=== PATIENT | female | born 1960 | race Caucasian/White ===

== ENCOUNTER 2019-02-25 13:08 | Inpatient (IN) | payer MEDICAID, SELFPAY ==
--- NOTE | 2019-02-25 13:38 | NEWVISION ---
Patient has recently established outpatient counseling with [facility] in [place]. [facility] contacted Sangeeta, patient's counselor to establish an appointment time post discharge. Sangeeta requests that patient call her upon discharge to determine when patient is to begin attending IOP.
[2019-02-25 13:41] VITALS: BP 146/89; PULSE 87; RESP 16; TEMP 36.6; O2SAT 99
[2019-02-25 13:47] VITALS: BMI 15.7
[2019-02-25 13:55] VITALS: BMI 15.8
[2019-02-25 14:12] VITALS: BP 146/89; PULSE 87; RESP 16; TEMP 36.6
[2019-02-25 14:52] LABS: Absolute Lymphocyte Count 1.45 X10^3/ul (0.83-4.51); Absolute Neutrophil Count 3.5 X10^3/uL (2.0-7.7); Basophil# 0.02 X10^3/uL; Basophil% 0.4 % (0-1); Eosinophil# 0.03 X10^3/uL; Eosinophils% 0.5 % (0-5); Hematocrit 45.5 % (37-47); Hemoglobin 16.4 g/dl (12.0-15.0); Lymphocyte # 1.45 X10^3/ul (4.0); Lymphocyte % 26.4 % (19-41); Mean Corpuscular Hgb 36.5 pg (27.0-32.0); Mean Corpuscular Volume 101.3 fL (81-99); Monocyte% 9.1 % (0-10); Neutrophil # 3.49 X10^3/uL (2.7-7.7); Neutrophil % 63.4 % (47-70); Platelet Count 122 K/mm3 (150-450); RBC Distribution Width CV 13.3 % (11.6-14.6); RBC Distribution Width SD 49.3 fl (35.1-43.9); Red Blood Count 4.49 M/mm3 (4.2-5.4); White Blood Count 5.5 K/mm3 (4.4-11.0)
[2019-02-25 14:54] LABS: POSITIVE COUNT NO; POSITIVE DIFFERENTIAL NO; POSITIVE MORPHOLOGY NO
[2019-02-25] MEDS: chlordiazePOXIDE 25 MG Capsule PO ×2 (15:00→20:18)
[2019-02-25 15:01] LABS: ALB/GLOB Ratio 0.8 RATIO (0.9-2.4); AST(SGOT) 116 U/L (15-37); Alanine Aminotransfer ALT/SGPT 38 U/L (13-56); Albumin, Serum 3.3 g/dL (3.2-5.0); Alkaline Phosphatase 161 U/L (45-117); Anion Gap 7 (5-15); BUN 2 mg/dL (7-18); BUN/Creat Ratio 4.3 RATIO (10-20); Calcium,Total 8.6 mg/dL (8.5-10.1); Chloride 95 mmol/L (98-107); Creatinine, Serum 0.46 mg/dL (0.55-1.02); EST Glomerular Filtration Rate 147 mL/min (>60); Est Glom Filt Rate - Afr Amer 178 mL/min (>60); Estimated Creatinine Clearance 87.97 ml/min; Globulin 4.2 g/dL (2.2-4.2); Glucose 83 mg/dL (74-106); Potassium 4.2 mmol/L (3.5-5.1); Protein, Total 7.5 g/dL (6.4-8.2); Sodium Level 129 mmol/L (136-145)
[2019-02-25 15:13] LABS: Bacteria 0 SEEN /hpf (None Seen); Mucous, Urine 0 SEEN /hpf (<or=2+); Red Blood Cells-Urine 0 SEEN /hpf (0-5); White Blood Cells 0 SEEN /hpf (0-5)
[2019-02-25 15:46] LABS: Color, Urine Yellow (Yellow); Glucose, Dipstick Normal (Normal); Ketone-Dipstick Negative (Negative); Leukocyte Esterase-Dipstick Negative /ul (Negative); Nitrite-Dipstick Negative (Negative); Occult Blood-Urine Negative /ul (Negative); Protein-Dipstick Negative (Negative); Specific Gravity, Urine 1.005 (1.002-1.030); Urine Bilirubin Dipstick Negative (Negative); Urine Clarity Clear (Clear); Urine Urobilinogen Normal (Normal)
[2019-02-25 15:50] LABS: Squamous Epithelial Cells - UA 0-5 SEEN /hpf (5-10)
--- NOTE | 2019-02-25 16:26 | PCM.HP.STD ---
Problem List (1) Alcohol withdrawal Status: Acute (2) Hyponatremia Status: Acute (3) Nicotine abuse Status: Chronic (4) COPD (chronic obstructive pulmonary disease) Status: Chronic (5) Anxiety Status: Chronic History of Present Illness Date of Admission: 02/25/19 Chief Complaint: alcohol withdrawal The patient is a 58 year old F with past medical history of alcoholism, COPD, anxiety, nicotine abuse, chronic resting tremor who presented to the medical stabilization program requesting assistance with alcohol detox and acute alcohol withdrawal. Her threatened to leave her if she did not stop drinking. She is never been through alcohol withdrawal. She has been an alcoholic between 10 to 20 years. She drinks approximately 12-15 normal size beers daily. Her last drink was this morning, she drank 3 beers. She reports increase in her resting tremor, anxiety, diarrhea. She also smokes about a pack a day. She requested nicotine patch. She plans to pursue the 180 program after discharge. She also notes that she has lost about 20 pounds in the last year that she attributes to not eating right. 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 Denies: Chills, Fever, Weight Change HEENT: Denies: Head Aches, Sinus Congestion, Sinus Drainage Cardiovascular: Denies: Chest Pain, Palpitations Respiratory: Denies: Cough, Shortness of breath at rest, Sputum production Gastrointestinal: Denies: Abdominal Pain, Nausea, Vomiting Genitourinary: Denies: Dysuria Musculoskeletal: Denies: Joint Pain, Joint Tenderness Skin: Denies: Rash, Wounds Neurological: Denies: Numbness, Tingling, Focal weakness Psychiatric: Denies: Anxiety, Depression, Homicidal Ideations, Suicidal Ideations Hematologic/ Lymphatic: Denies: Easy Bruising, Easy Bleeding VTE Information - Inpt Only VTE Present on Admission: No VTE Mechan Device Prophylaxis: None VTE Pharm Prophylaxis ordered?: No Reason prophylaxis not ordered:: Procedure Not Indicated Patient Problems: Active and Suspected Problems Alcohol withdrawal (Acute) Hyponatremia (Acute) - Physical Exam General: Alert, Oriented x3, Cooperative HEENT: Atraumatic, PERRLA, EOMI, Normocephalic Neck: Supple, No JVD, Negative Carotid Bruits Lungs: Clear to auscultation, Normal air movement Cardiovascular: Regular rate, No murmurs Abdomen: Bowel Sounds Present, Soft, Non Tender Extremities: No edema, Capillary Refill Less than 3 Seconds Skin: No rashes, No breakdown Musculoskeletal: No Tenderness to Palpation of Joints or Extremities Neurological: Cranial nerves II-XII grossly intact, - - Resting tremor Psych/Mental Status: Appropriate, Anxious Vital Signs Temp Pulse Resp BP Pulse Ox 97.8 F 87 16 146/89 H 99 02/25/19 14:12 02/25/19 14:12 02/25/19 14:12 02/25/19 14:12 02/25/19 13:41 Oxygen Delivery Method Room Air Weight: 92 lb 2.452 oz Body Mass Index (BMI) 15.7 Laboratory Tests Past 24 Hrs 02/25/19 02/25/19 02/25/19 14:27 14:27 15:04 WBC 5.5 RBC 4.49 Hgb 16.4 H Hct 45.5 MCV 101.3 H MCH 36.5 H MCHC 36.0 RDW 13.3 RDW Differential 49.3 H Plt Count 122 L MPV 10.0 Immature Gran % (Auto) 0.200 Neut % (Auto) 63.4 Lymph % (Auto) 26.4 [place] % (Auto) 9.1 Eos % (Auto) 0.5 Baso % (Auto) 0.4 Absolute Neuts (auto) 3.5 Absolute Lymphs (auto) 1.45 Total Counted Not Reportable Sodium 129 L Potassium 4.2 Chloride 95 L Carbon Dioxide 27.0 Anion Gap 7 BUN 2 L Creatinine 0.46 L Estim Creat Clear Calc 87.97 Est GFR (MDRD) Af Amer 178 Est GFR (MDRD) Non-Af 147 BUN/Creatinine Ratio 4.3 L Glucose 83 Calcium 8.6 Total Bilirubin 0.60 AST 116 H ALT 38 Alkaline Phosphatase 161 H Total Protein 7.5 Albumin 3.3 Globulin 4.2 Albumin/Globulin Ratio 0.8 L Urine Color Yellow Urine Clarity Clear Urine pH 7.0 Ur Specific [place] 1.005 Urine Protein Negative Urine Glucose (UA) Normal Urine Ketones Negative Urine Occult Blood Negative Urine Nitrite Negative Urine Bilirubin Negative Urine Urobilinogen Normal Ur Leukocyte Esterase Negative Urine RBC 0 SEEN Urine WBC 0 SEEN Ur Squamous Epith Cells 0-5 SEEN Urine Bacteria 0 SEEN Urine Mucus 0 SEEN Assessment/Plan All Active Problems Alcohol withdrawal (Acute) Hyponatremia (Acute) 1. Alcoholism with acute alcohol withdrawal-current symptoms include anxiety, increased tremor, diarrhea. Drinks approximately 12-15 beers per day. Initiate medical stabilization program with Librium and Ativan taper. CIWA protocol, provide MVI, folate, thiamine. 2. Hyponatremia secondary to beer potomania-we will encourage increased p.o. intake. Should trend to normal off of beer with normal fluid and meals. 3. Nicotine abuse-patch daily 4. Anxiety-she would benefit from the initiation of SSRI or BuSpar. 5. Severe protein calorie malnutrition as evidenced by progressive weight loss, frail appearance, poor BMI, patient not eating normal meals-dietitian consult. Provide supplemental protein. 6. History of COPD-never formally diagnosed, continue aerosols as needed. DVT prophylaxis: Early ambulation Medical stabilization day [address] [place] [address] [place] This patient was seen by Musa Bernabe PA-C under the supervision of Doctor Langford.
--- NOTE | 2019-02-25 16:30 | HP.PCM_ITS ---
Problem List (1) Alcohol withdrawal Status: Acute (2) Hyponatremia Status: Acute (3) Nicotine abuse Status: Chronic (4) COPD (chronic obstructive pulmonary disease) Status: Chronic (5) Anxiety Status: Chronic History of Present Illness Date of Admission: 02/25/19 Chief Complaint: alcohol withdrawal The patient is a 58 year old F with past medical history of alcoholism, COPD, anxiety, nicotine abuse, chronic resting tremor who presented to the medical stabilization program requesting assistance with alcohol detox and acute alcohol withdrawal. Her threatened to leave her if she did not stop drinking. She is never been through alcohol withdrawal. She has been an alcoholic between 10 to 20 years. She drinks approximately 12-15 normal size beers daily. Her last drink was this morning, she drank 3 beers. She reports increase in her resting tremor, anxiety, diarrhea. She also smokes about a pack a day. She requested nicotine patch. She plans to pursue the 180 program after discharge. She also notes that she has lost about 20 pounds in the last year that she att ributes to not eating right. 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 Denies: Chills, Fever, Weight Change HEENT: Denies: Head Aches, Sinus Congestion, Sinus Drainage Cardiovascular: Denies: Chest Pain, Palpitations Respiratory: Denies: Cough, Shortness of breath at rest, Sputum production Gastrointestinal: Denies: Abdominal Pain, Nausea, Vomiting Genitourinary: Denies: Dysuria Musculoskeletal: Denies: Joint Pain, Joint Tenderness Skin: Denies: Rash, Wounds Neurological: Denies: Numbness, Tingling, Focal weakness Psychiatric: Denies: Anxiety, Depression, Homicidal Ideations, Suicidal Ideations Hematologic/ Lymphatic: Denies: Easy Bruising, Easy Bleeding VTE Information - Inpt Only VTE Present on Admission: No VTE Mechan Device Prophylaxis: None VTE Pharm Prophylaxis ordered?: No Reason prophylaxis not ordered:: Procedure Not Indicated Patient Problems: Active and Suspected Problems Alcohol withdrawal (Acute) Hyponatremia (Acute) - Physical Exam General: Alert, Oriented x3, Cooperative HEENT: Atraumatic, PERRLA, EOMI, Normocephalic Neck: Supple, No JVD, Negative Carotid Bruits Lungs: Clear to auscultation, Normal air movement Cardiovascular: Regular rate, No murmurs Abdomen: Bowel Sounds Present, Soft, Non Tender Extremities: No edema, Capillary Refill Less than 3 Seconds Skin: No rashes, No breakdown Musculoskeletal: No Tenderness to Palpation of Joints or Extremities Neurological: Cranial nerves II-XII grossly intact, - - Resting tremor Psych/Mental Status: Appropriate, Anxious Vital Signs Temp Pulse Resp BP Pulse Ox 97.8 F 87 16 146/89 H 99 02/25/19 14:12 02/25/19 14:12 02/25/19 14:12 02/25/19 14:12 02/25/19 13:41 Oxygen Delivery Method Room Air Weight: 92 lb 2.452 oz Body Mass Index (BMI) 15.7 Laboratory Tests Past 24 Hrs 02/25/19 02/25/19 02/25/19 14:27 14:27 15:04 WBC 5.5 RBC 4.49 Hgb 16.4 H Hct 45.5 MCV 101.3 H MCH 36.5 H MCHC 36.0 RDW 13.3 RDW Differential 49.3 H Plt Count 122 L MPV 10.0 Immature Gran % (Auto) 0.200 Neut % (Auto) 63.4 Lymph % (Auto) 26.4 [place] % (Auto) 9.1 Eos % (Auto) 0.5 Baso % (Auto) 0.4 Absolute Neuts (auto) 3.5 Absolute Lymphs (auto) 1.45 Total Counted Not Reportable Sodium 129 L Potassium 4.2 Chloride 95 L Carbon Dioxide 27.0 Anion Gap 7 BUN 2 L Creatinine 0.46 L Estim Creat Clear Calc 87.97 Est GFR (MDRD) Af Amer 178 Est GFR (MDRD) Non-Af 147 BUN/Creatinine Ratio 4.3 L Glucose 83 Calcium 8.6 Total Bilirubin 0.60 AST 116 H ALT 38 Alkaline Phosphatase 161 H Total Protein 7.5 Albumin 3.3 Globulin 4.2 Albumin/Globulin Ratio 0.8 L Urine Color Yellow Urine Clarity Clear Urine pH 7.0 Ur Specific [place] 1.005 Urine Protein Negative Urine Glucose (UA) Normal Urine Ketones Negative Urine Occult Blood Negative Urine Nitrite Negative Urine Bilirubin Negative Urine Urobilinogen Normal Ur Leukocyte Esterase Negative Urine RBC 0 SEEN Urine WBC 0 SEEN Ur Squamous Epith Cells 0-5 SEEN Urine Bacteria 0 SEEN Urine Mucus 0 SEEN Assessment/Plan All Active Problems Alcohol withdrawal (Acute) Hyponatremia (Acute) 1. Alcoholism with acute alcohol withdrawal-current symptoms include anxiety, increased tremor, diarrhea. Drinks approximately 12-15 beers per day. Initiate medical stabilization program with Librium and Ativan taper. CIWA protocol, provide MVI, folate, thiamine. 2. Hyponatremia secondary to beer potomania-we will encourage increased p.o. intake. Should trend to normal off of beer with normal fluid and meals. 3. Nicotine abuse-patch daily 4. Anxiety-she would benefit from the initiation of SSRI or BuSpar. 5. Severe protein calorie malnutrition as evidenced by progressive weight loss, frail appearance, poor BMI, patient not eating normal meals-dietitian consult. Provide supplemental protein. 6. History of COPD-never formally diagnosed, continue aerosols as needed. DVT prophylaxis: Early ambulation Medical stabilization day 1 of 4 [place] plann[place] This patient was seen by Musa Bernabe PA-C under the supervision of Doctor Langford.
[2019-02-25 17:59] VITALS: BP 154/76; PULSE 91; RESP 18; TEMP 36.3
[2019-02-25] MEDS: Ensure Clear 120 ML Liquid PO ×2 (18:00→22:53)
[2019-02-25 20:07] VITALS: BP 154/76; PULSE 98; RESP 18; TEMP 36.4
[2019-02-25] MEDS: Heparin Injection (Vial) 5,000 UNIT/ML VIAL 5000 UNIT SC (22:53)
[2019-02-26] VITALS (7 sets, daily range): BP systolic 140–154; BP diastolic 78–89; PULSE 90–108; RESP 16–18; TEMP 36.4–36.9; O2SAT 96
[2019-02-26] MEDS: chlordiazePOXIDE 25 MG Capsule PO ×3 (02:30→17:15)
[2019-02-26] MEDS: Methocarbamol 750 MG Tablet PO (08:35)
[2019-02-26] MEDS: Multivitamins,Therapeutic Tablet 1 TABLET PO (08:36)
[2019-02-26] MEDS: Thiamine Hydrochloride 100 MG Tablet PO (08:36)
[2019-02-26] MEDS: Folic Acid 1 MG Tablet PO (08:37)
[2019-02-26] MEDS: Heparin Injection (Vial) 5,000 UNIT/ML VIAL 5000 UNIT SC ×2 (08:40→22:16)
[2019-02-26] MEDS: Ensure Clear 120 ML Liquid PO ×4 (08:48→22:19)
--- NOTE | 2019-02-26 13:56 | PCM.PROGNOTE ---
<Musa Bernabe - Last Filed: 02/26/19 13:56> Patient Problems: Active and Suspected Problems Alcohol withdrawal (Acute) Hyponatremia (Acute) Subjective: Resting tremor somewhat improved. No abd pain, no nausea, vomiting, diarrhea. Pt resting comfortably in chair at bedside NAD. - Physical Exam General: Alert, Oriented x3, Cooperative HEENT: Atraumatic, PERRLA, EOMI, Normocephalic Neck: Supple, No JVD, Negative Carotid Bruits Lungs: Clear to auscultation, Normal air movement Cardiovascular: Regular rate, No murmurs Abdomen: Bowel Sounds Present, Soft, Non Tender Extremities: No edema, Capillary Refill Less than 3 Seconds Skin: No rashes, No breakdown Musculoskeletal: No Tenderness to Palpation of Joints or Extremities Neurological: Cranial nerves II-XII grossly intact, - - resting tremor - head bobbing. Psych/Mental Status: Normal Affect, Appropriate, Alert and oriented to time, place, person, mood and affect Vital Signs Temp Pulse Resp BP Pulse Ox 97.6 F L 90 18 140/82 H 99 02/26/19 12:50 02/26/19 12:50 02/26/19 12:50 02/26/19 12:50 02/25/19 13:41 Oxygen Delivery Method Room Air Weight: 92 lb 2.452 oz Body Mass Index (BMI) 15.7 Intake and Output for Last 24 Hours 02/24/19 02/25/19 02/26/19 23:59 23:59 23:59 Intake Total 240 / 240 760 / 760 Balance 240 / 240 760 / 760 Laboratory Tests Past 24 Hrs 02/25/19 02/25/19 02/25/19 14:27 14:27 15:04 WBC 5.5 RBC 4.49 Hgb 16.4 H Hct 45.5 MCV 101.3 H MCH 36.5 H MCHC 36.0 RDW 13.3 RDW Differential 49.3 H Plt Count 122 L MPV 10.0 Immature Gran % (Auto) 0.200 Neut % (Auto) 63.4 Lymph % (Auto) 26.4 [place] % (Auto) 9.1 Eos % (Auto) 0.5 Baso % (Auto) 0.4 Absolute Neuts (auto) 3.5 Absolute Lymphs (auto) 1.45 Total Counted Not Reportable Sodium 129 L Potassium 4.2 Chloride 95 L Carbon Dioxide 27.0 Anion Gap 7 BUN 2 L Creatinine 0.46 L Estim Creat Clear Calc 87.97 Est GFR (MDRD) Af Amer 178 Est GFR (MDRD) Non-Af 147 BUN/Creatinine Ratio 4.3 L Glucose 83 Calcium 8.6 Total Bilirubin 0.60 AST 116 H ALT 38 Alkaline Phosphatase 161 H Total Protein 7.5 Albumin 3.3 Globulin 4.2 Albumin/Globulin Ratio 0.8 L Urine Color Yellow Urine Clarity Clear Urine pH 7.0 Ur Specific [place] 1.005 Urine Protein Negative Urine Glucose (UA) Normal Urine Ketones Negative Urine Occult Blood Negative Urine Nitrite Negative Urine Bilirubin Negative Urine Urobilinogen Normal Ur Leukocyte Esterase Negative Urine RBC 0 SEEN Urine WBC 0 SEEN Ur Squamous Epith Cells 0-5 SEEN Urine Bacteria 0 SEEN Urine Mucus 0 SEEN Medical Necessity - Tobacco Use Smoking Status: Current every day smoker Tobacco Use: Cigarettes Assessment/Plan All Active Problems Alcohol withdrawal (Acute) Hyponatremia (Acute) 1. Alcoholism with acute alcohol withdrawal-current symptoms include tremor. Drinks approximately 12-15 beers per day. Continue Librium and Ativan taper. CIWA protocol, provide MVI, folate, thiamine. 2. Hyponatremia secondary to beer potomania-we will encourage increased p.o. intake. Should trend to normal off of beer with normal PO fluid intake and meals. 3. Nicotine abuse-patch daily 4. Anxiety-she would benefit from the initiation of SSRI or BuSpar. 5. Severe protein calorie malnutrition as evidenced by progressive weight loss, frail appearance, poor BMI, patient not eating normal meals-dietitian consult. Provide supplemental protein. 6. History of COPD-never formally diagnosed, continue aerosols as needed. DVT prophylaxis: Early ambulation Medical stabilization day 2 of 4 [place] This patient was seen by Musa Bernabe PA-C under the supervision of Doctor Celia. <Marshal Yang E - Last Filed: 02/26/19 14:12> - Physical Exam Vital Signs Temp Pulse Resp BP Pulse Ox 97.6 F L 90 18 140/82 H 99 02/26/19 12:50 02/26/19 12:50 02/26/19 12:50 02/26/19 12:50 02/25/19 13:41 Oxygen Delivery Method Room Air Weight: 92 lb 2.452 oz Body Mass Index (BMI) 15.7 Intake and Output for Last 24 Hours 02/24/19 02/25/19 02/26/19 23:59 23:59 23:59 Intake Total 240 / 240 760 / 760 Balance 240 / 240 760 / 760 Laboratory Tests Past 24 Hrs 02/25/19 02/25/19 02/25/19 14:27 14:27 15:04 WBC 5.5 RBC 4.49 Hgb 16.4 H Hct 45.5 MCV 101.3 H MCH 36.5 H MCHC 36.0 RDW 13.3 RDW Differential 49.3 H Plt Count 122 L MPV 10.0 Immature Gran % (Auto) 0.200 Neut % (Auto) 63.4 Lymph % (Auto) 26.4 [place] % (Auto) 9.1 Eos % (Auto) 0.5 Baso % (Auto) 0.4 Absolute Neuts (auto) 3.5 Absolute Lymphs (auto) 1.45 Total Counted Not Reportable Sodium 129 L Potassium 4.2 Chloride 95 L Carbon Dioxide 27.0 Anion Gap 7 BUN 2 L Creatinine 0.46 L Estim Creat Clear Calc 87.97 Est GFR (MDRD) Af Amer 178 Est GFR (MDRD) Non-Af 147 BUN/Creatinine Ratio 4.3 L Glucose 83 Calcium 8.6 Total Bilirubin 0.60 AST 116 H ALT 38 Alkaline Phosphatase 161 H Total Protein 7.5 Albumin 3.3 Globulin 4.2 Albumin/Globulin Ratio 0.8 L Urine Color Yellow Urine Clarity Clear Urine pH 7.0 Ur Specific [place] 1.005 Urine Protein Negative Urine Glucose (UA) Normal Urine Ketones Negative Urine Occult Blood Negative Urine Nitrite Negative Urine Bilirubin Negative Urine Urobilinogen Normal Ur Leukocyte Esterase Negative Urine RBC 0 SEEN Urine WBC 0 SEEN Ur Squamous Epith Cells 0-5 SEEN Urine Bacteria 0 SEEN Urine Mucus 0 SEEN Assessment/Plan Hospitalist note: I am seeing this patient in conjunction with Musa Bernabe. I independently seen and examined the patient. Progress note above reviewed and I concur with the above treatment plan. Patient seen and examined. Her symptoms improved, resting tremor is getting better. Denies nausea or vomiting. Denies abdominal pain. She was able to sleep overnight. Her vital signs were stable. - Physical Exam General: Alert, Oriented x3, Cooperative, No apparent distress. HEENT: Atraumatic, PERRLA, EOMI. Neck: Supple, No JVD, Negative Carotid Bruits, Trachea Midline, Thyroid Normal. Lungs: Clear to auscultation, Normal air movement, No rhonchi, No wheeze, No rales. Cardiovascular: Regular rate, Regular Rhythm, Normal S1, Normal S2, PMI Normal. Abdomen: Bowel Sounds Present, Soft, Non Tender, Non-Distended, No Hepato-splenomegaly. Extremities: No clubbing, No cyanosis, No edema Skin: No rashes, No breakdown Neurological: Cranial nerves are intact. Normal power and tone. Head-nodding, resting tremor. Vital Signs stable. Assessment and plan: #1 acute alcohol withdrawal: She is on tapering course of Librium, folic acid and thiamine supplement, PRN methocarbamol, Motrin, Tylenol and multivitamins. Her vital signs are stable. Symptoms mildly improved. Today, she complained of some weakness. Plan to continue same treatment, PT OT evaluation and treatment. #2 hyponatremia: Likely euvolemic hyponatremia secondary to chronic alcohol abuse. Sodium was 129. #3 severe protein calorie malnutrition: Nutrition consulted, she is on protein supplement. #4 other chronic medical problems: Stable, continue current medications as above. This note was generated with [employer] dictation software. It may contain incorrect words, spelling, and punctuation that were not noted in checking the note before signing. Code Visit Inpatient E&M: 91598 Subs Hosp L2
[2019-02-27] MEDS: chlordiazePOXIDE 25 MG Capsule PO ×3 (00:15→18:03)
[2019-02-27 10:00] VITALS: BP 147/97; PULSE 95; RESP 20; TEMP 36.4
[2019-02-27] MEDS: Folic Acid 1 MG Tablet PO (10:39)
[2019-02-27] MEDS: Thiamine Hydrochloride 100 MG Tablet PO (10:39)
[2019-02-27] MEDS: Heparin Injection (Vial) 5,000 UNIT/ML VIAL 5000 UNIT SC ×2 (10:39→22:32)
[2019-02-27] MEDS: Multivitamins,Therapeutic Tablet 1 TABLET PO (10:39)
--- NOTE | 2019-02-27 14:36 | PCM.PROGNOTE ---
<Musa Bernabe - Last Filed: 02/27/19 14:36> Patient Problems: Active and Suspected Problems Alcohol withdrawal (Acute) Hyponatremia (Acute) Subjective: Pt resting comfortably in chair at bedside NAD. No improvement in tremor. No N/V/Diarrhea/abdominal pain, ROA, SOB. - Physical Exam General: Alert, Oriented x3, Cooperative HEENT: Atraumatic, PERRLA, EOMI, Normocephalic Neck: Supple, No JVD, Negative Carotid Bruits Lungs: Clear to auscultation, Normal air movement Cardiovascular: Regular rate, No murmurs Abdomen: Bowel Sounds Present, Soft, Non Tender Extremities: No edema, Capillary Refill Less than 3 Seconds Skin: No rashes, No breakdown Musculoskeletal: No Tenderness to Palpation of Joints or Extremities Neurological: Cranial nerves II-XII grossly intact, - - resting tremor - head gisella Psych/Mental Status: Normal Affect, Appropriate, Alert and oriented to time, place, person, mood and affect Vital Signs Temp Pulse Resp BP Pulse Ox 97.5 F L 95 20 H 147/97 H 96 02/27/19 10:00 02/27/19 10:00 02/27/19 10:00 02/27/19 10:00 02/26/19 22:21 Oxygen Delivery Method Room Air Weight: 92 lb 2.452 oz Body Mass Index (BMI) 15.7 Intake and Output for Last 24 Hours 02/25/19 02/26/19 02/27/19 23:59 23:59 23:59 Intake Total 240 / 240 1180 / 1180 740 / 740 Balance 240 / 240 1180 / 1180 740 / 740 Medical Necessity - Tobacco Use Smoking Status: Current every day smoker Tobacco Use: Cigarettes Assessment/Plan All Active Problems Alcohol withdrawal (Acute) Hyponatremia (Acute) 1. Alcoholism with acute alcohol withdrawal-current symptoms include tremor. Drinks approximately 12-15 beers per day. Continue Librium and Ativan taper. CIWA protocol, provide MVI, folate, thiamine. 2. Hyponatremia secondary to beer potomania-we will encourage increased p.o. intake. Should trend to normal off of beer with normal PO fluid intake and meals. 3. Nicotine abuse-patch daily 4. Anxiety-she would benefit from the initiation of SSRI or BuSpar. 5. Severe protein calorie malnutrition as evidenced by progressive weight loss, frail appearance, poor BMI, patient not eating normal meals-dietitian consult. Provide supplemental protein. 6. History of COPD-never formally diagnosed, continue aerosols as needed. DVT prophylaxis: Early ambulation Medical stabilization day 3 of 4 [place] pl[place] This patient was seen by Musa Bernabe PA-C under the supervision of Doctor Celia. <Marshal Yang E - Last Filed: 02/27/19 14:49> - Physical Exam Vital Signs Temp Pulse Resp BP Pulse Ox 97.5 F L 95 20 H 147/97 H 96 02/27/19 10:00 02/27/19 10:00 02/27/19 10:00 02/27/19 10:00 02/26/19 22:21 Oxygen Delivery Method Room Air Weight: 92 lb 2.452 oz Body Mass Index (BMI) 15.7 Intake and Output for Last 24 Hours 02/25/19 02/26/19 02/27/19 23:59 23:59 23:59 Intake Total 240 / 240 1180 / 1180 740 / 740 Balance 240 / 240 1180 / 1180 740 / 740 Assessment/Plan Hospitalist note: I am seeing this patient in conjunction with Musa Bernabe. I independently seen and examined the patient. Progress note above reviewed and I concur with the above treatment plan. Patient seen and examined. She denied any significant complaints. She still having tremors and head nodding but I am not sure if those are related to alcohol withdrawal which I doubt it. Her vital signs are stable. - Physical Exam General: Alert, Oriented x3, Cooperative, No apparent distress. HEENT: Atraumatic, PERRLA, EOMI. Neck: Supple, No JVD, Negative Carotid Bruits, Trachea Midline, Thyroid Normal. Lungs: Clear to auscultation, Normal air movement, No rhonchi, No wheeze, No rales. Cardiovascular: Regular rate, Regular Rhythm, Normal S1, Normal S2, PMI Normal. Abdomen: Bowel Sounds Present, Soft, Non Tender, Non-Distended, No Hepato-splenomegaly. Extremities: No clubbing, No cyanosis, No edema Skin: No rashes, No breakdown Neurological: Cranial nerves are intact. Normal power and tone. Head-nodding, resting tremor. Vital Signs stable. Assessment and plan: #1 acute alcohol withdrawal: She is on tapering course of Librium, folic acid and thiamine supplement, PRN methocarbamol, Motrin, Tylenol and multivitamins. Her vital signs are stable. Patient is doing fine, still having head nodding. Plan to potassium treatment, DC home tomorrow. #2 hyponatremia: Likely euvolemic hyponatremia secondary to chronic alcohol abuse. Sodium was 129. #3 severe protein calorie malnutrition: Nutrition consulted, she is on protein supplement. #4 other chronic medical problems: Stable, continue current medications as above. This note was generated with [employer] dictation software. It may contain incorrect words, spelling, and punctuation that were not noted in checking the note before signing. Code Visit Inpatient E&M: 89036 Subs Hosp L2
--- NOTE | 2019-02-27 16:30 | NURSING ---
This morning, Physical Therapy informed this nurse that after evaluating pt, pt is unsteady. This nurse stated that she would put bed exit alarm on pt and Physical therapy said probably not a good idea. They recommended her to be independent going to the bathroom otherwise pt would be more agitated then she already was but make her ambulate in halls but only with assistance from staff. This nurse went back to talk to pt about this. Pt Agitated with Physical therapy. Refusing to work with them tomorrow. This nurse sat down next to pt and listened to her talk. Explained to pt when she was done talking that physical therapy at least wants her to walk the halls TID but only with staff present. Pt did not respond. Still upset. Dr. Yang aware of all the above. Dr. Yang stated that Martina told him yesterday that She felt weak and unsteady and that was why he ordered Physical Therapy.
[2019-02-27] MEDS: Ensure Clear 120 ML Liquid PO ×2 (18:03→22:29)
[2019-02-27 18:21] VITALS: BP 140/82; PULSE 100; RESP 16; TEMP 36.8; O2SAT 100
[2019-02-27 22:05] VITALS: BP 169/103; PULSE 97; RESP 20; TEMP 36.8; O2SAT 99
[2019-02-27 22:12] VITALS: BP 169/103; PULSE 97; RESP 20; TEMP 36.8
[2019-02-28 00:43] VITALS: BP 146/95; PULSE 96; RESP 18; TEMP 36.7; O2SAT 98
[2019-02-28 04:00] VITALS: BP 142/87; PULSE 87; RESP 18; TEMP 36.4; O2SAT 98
[2019-02-28] MEDS: chlordiazePOXIDE 25 MG Capsule PO (04:02)
[2019-02-28 04:06] VITALS: RESP 18
[2019-02-28] MEDS: Thiamine Hydrochloride 100 MG Tablet PO (08:42)
[2019-02-28] MEDS: Folic Acid 1 MG Tablet PO (08:42)
[2019-02-28] MEDS: Multivitamins,Therapeutic Tablet 1 TABLET PO (08:42)
[2019-02-28] MEDS: Heparin Injection (Vial) 5,000 UNIT/ML VIAL 5000 UNIT SC (08:43)
[2019-02-28] MEDS: Ensure Clear 120 ML Liquid PO (08:49)
[2019-02-28 10:00] VITALS: BP 143/91; PULSE 108; RESP 18; TEMP 36.6; O2SAT 99
--- NOTE | 2019-02-28 10:51 | DCINST_ITS ---
- Discharge Diagnoses Current Active Problems: Current Active and Chronic Problems Alcohol withdrawal (Acute) Nicotine abuse (Chronic) COPD (chronic obstructive pulmonary disease) (Chronic) Anxiety (Chronic) Hyponatremia (Acute) You will use the following diet at home:: No restrictions, Other - No alcohol whatsoever Your food should be the consistency of: Regular Your liquids should be the consistency of: Regular/Thin Discharge Activity: Return to Normal Activity Allergies/Adverse Reactions: Allergies codeine Allergy (Intermediate, Verified 02/25/19 13:43) Vomiting Medications to take at Discharge Folic Acid 1 mg PO DAILY 02/25/19 Thiamine Mononitrate (Vit B1) [Vitamin B-1] 100 mg PO DAILY 02/25/19 Primary Care Physician: Care Physician,No Primary [Primary Care Provider] - Please follow up with your Primary Care Physician in: 1-2 weeks Test Results: Test results from this visit will be discussed in further detail at your follow- up appointment, if applicable. Please Follow Up With: 180 program Proposed Discharge Date: 02/28/19
--- NOTE | 2019-02-28 11:25 | NEWVISION ---
Patient was made an appointment to attend intensive outpatient treatment programming with [facility]. Patient states she is a current open client of [facility]. I confirmed with agency and set her up to start IOP tomorrow 5.21.19 at 10am in [place].
[2019-02-28 12:20] VITALS: BP 143/91; PULSE 108; RESP 18; TEMP 36.6; O2SAT 99
--- NOTE | 2019-02-28 15:35 | PCM.DC.SUM ---
<Musa Bernabe - Last Filed: 02/28/19 15:35> Discharge Date and Diagnosis Date of Admission: 02/25/19 Date of Discharge: 02/28/19 - Primary Discharge Diagnosis Alcoholism with acute withdrawal Hyponatremia secondary to beer potomania Nicotine abuse Anxiety Severe protein calorie malnutrition History of COPD, no exacerbation - Secondary Discharge Diagnosis Chronic Problems Nicotine abuse (Chronic) COPD (chronic obstructive pulmonary disease) (Chronic) Anxiety (Chronic) Hospital Course and Treatment Operations: None Procedures: None Summary of Care Provided: Hospital Course: The patient is a 58 year old F with past medical history of alcoholism, COPD, anxiety, nicotine abuse, resting tremor who presented to the hospital requesting assistance with alcohol detox. She has been drinking for the past 10 to 20 years, drinking approximately 12-15 beers daily. Her last drink was that morning prior to reporting to the hospital. She reported increased tremor, anxiety, diarrhea. She also had significant hyponatremia felt to be secondary to beer potomania. She also smokes about a pack per day. She was admitted and started on Librium taper. She had complete resolution of her symptoms. She does have a chronic underlying resting tremor which is still present. She plans to follow-up with the 180 program and with Vivitrol injections. She was discharged home in stable condition. Please follow-up with your PCP in 1 to 2 weeks. This patient was seen by Musa Bernabe PA-C under the supervision of Doctor Bronson. [] - Physical Exam General: Alert, Oriented x3, Cooperative HEENT: Atraumatic, PERRLA, EOMI, Normocephalic Neck: Supple, No JVD, Negative Carotid Bruits Lungs: Clear to auscultation, Normal air movement Cardiovascular: Regular rate, No murmurs Abdomen: Bowel Sounds Present, Soft, Non Tender Extremities: No edema, Capillary Refill Less than 3 Seconds Skin: No rashes, No breakdown Musculoskeletal: No Tenderness to Palpation of Joints or Extremities Neurological: Cranial nerves II-XII grossly intact, - - Resting tremor-head gisella Psych/Mental Status: Normal Affect, Appropriate Vital Signs Temp Pulse Resp BP Pulse Ox 97.8 F 108 H 18 143/91 H 99 02/28/19 12:20 02/28/19 12:20 02/28/19 12:20 02/28/19 12:20 02/28/19 12:20 Oxygen Delivery Method Room Air Weight: 92 lb 2.452 oz Body Mass Index (BMI) 15.7 Intake and Output for Last 24 Hours 02/26/19 02/27/19 02/28/19 23:59 23:59 23:59 Intake Total 1180 / 1180 1660 / 1660 440 / 440 Balance 1180 / 1180 1660 / 1660 440 / 440 Discharge Diet: - - no alcohol at all Discharge Activity: Return to Normal Activity Home Medications: Medications to take at Discharge Folic Acid 1 mg PO DAILY 02/25/19 Thiamine Mononitrate (Vit B1) [Vitamin B-1] 100 mg PO DAILY 02/25/19 Primary Care Physician: Care Physician,No Primary [Primary Care Provider] - Please follow up with your Primary Care Physician in: 1-2 weeks Please Follow Up With: 180 program Disposition: Home Minutes spent on discharge:: 35 Patient Condition:: Stable Medical Necessity - Tobacco Use Smoking Status: Current every day smoker Tobacco Use: Cigarettes Meaningful Use Info Meaningful Use Diagnoses (Choose all that apply): None applicable <Nerissa Dobson - Last Filed: 02/28/19 15:47> Discharge Date and Diagnosis - Secondary Discharge Diagnosis Chronic Problems Nicotine abuse (Chronic) COPD (chronic obstructive pulmonary disease) (Chronic) Anxiety (Chronic) Hospital Course and Treatment Summary of Care Provided: Patient seen by Musa Bernabe PA-C under my supervision The patient is a 58 year old F with past medical history as listed was admitted for acute alcohol withdrawal. She presented to the hospital requesting / alcohol detox. Last drink was the morning prior to admission and she also complained of tremors, anxiety and diarrhea. On admission she was found to have hyponatremia of 129, which was thought to be due to beer potomania. She was then managed for acute alcohol withdrawal and acute hyponatremia. She was started on Librium withdrawal protocol and hydrated with IV fluids. Patient remained stable and completed 3 days of acute withdrawal protocol with Librium. She was discharged home on 02/28/2019. She is to follow-up with her primary care doctor and follow-up with a 118 program. She is follow-up with her primary care doctor in 1 week. Patient seen and examined prior to discharge. She had no complaints and felt well. She had a tremor of upper extremities which was chronic. Review of systems otherwise negative. Labs and vitals reviewed. Home medications reviewed and reconciled. o/e: Vital Signs Height 5 ft 4 in Weight: 92 lb 2.452 oz Weight in Pounds 92.2 lbs Pulse Ox 99 Temperature 97.8 F Pulse Rate 108 Respiratory Rate 18 Blood Pressure 143/91 Blood Pressure Position Sitting General: Alert, Oriented x3, Cooperative HEENT: Atraumatic, PERRLA, EOMI, Normocephalic Neck: Supple, No JVD, Negative Carotid Bruits Lungs: Clear to auscultation, Normal air movement Cardiovascular: Regular rate, No murmurs Abdomen: Bowel Sounds Present, Soft, Non Tender Extremities: No edema, Capillary Refill Less than 3 Seconds Skin: No rashes, No breakdown Musculoskeletal: No Tenderness to Palpation of Joints or Extremities Neurological: Cranial nerves II-XII grossly intact, - - resting tremors of UEs - head gisella Psych/Mental Status: Normal Affect, Appropriate, Alert and oriented to time, place, person, mood and affect - Physical Exam Vital Signs Temp Pulse Resp BP Pulse Ox 97.8 F 108 H 18 143/91 H 99 02/28/19 12:20 02/28/19 12:20 02/28/19 12:20 02/28/19 12:20 02/28/19 12:20 Oxygen Delivery Method Room Air Weight: 92 lb 2.452 oz Body Mass Index (BMI) 15.7 Intake and Output for Last 24 Hours 02/26/19 02/27/19 02/28/19 23:59 23:59 23:59 Intake Total 1180 / 1180 1660 / 1660 440 / 440 Balance 1180 / 1180 1660 / 1660 440 / 440 Code Visit Inpatient E&M: 25491 Disch Hosp
== END 2019-02-28 12:24 | disposition home or self-care (01) | DRG 775 ==
PROVIDERS: Admitting Provider Internal Medicine; Referring Provider Internal Medicine; Visit Provider Student in an Organized Health Care Education/Training Program
DX: F10.239 Alcohol dependence with withdrawal, unspecified (principal); Z68.1 Body mass index [BMI] 19.9 or less, adult; F17.210 Nicotine dependence, cigarettes, uncomplicated; E43 Unspecified severe protein-calorie malnutrition; E87.1 Hypo-osmolality and hyponatremia; F41.9 Anxiety disorder, unspecified; J44.9 Chronic obstructive pulmonary disease, unspecified
CPT/HCPCS: 80053; 81001; 85025; 97110; 97161; 97165; 97530; 97802; 99406

== ENCOUNTER → 2020-02-29 14:18 | Outpatient (CLI) | payer BC, MEDICAID, SELFPAY ==
[2020-02-29 16:18] LABS: Absolute Lymphocyte Count 2.39 X10^3/uL (0.83-4.51); Absolute Neutrophil Count 5.2 X10^3/uL (2.0-7.7); Basophil# 0.05 X10^3/uL; Basophil% 0.6 % (0-1); Eosinophil# 0.12 X10^3/uL; Eosinophils% 1.4 % (0-5); Hematocrit 45.1 % (37-47); Hemoglobin 15.1 g/dL (12.0-15.0); Lymphocyte # 2.39 X10^3/ul (4.0); Lymphocyte % 28.7 % (19-41); Mean Corp Hgb Conc 33.5 g/dL (32-36); Mean Corpuscular Hgb 30.8 pg (27.0-32.0); Mean Platelet Vol. 10.4 fl (6.2-12.0); Monocyte# 0.55 X10^3/uL; Monocyte% 6.6 % (0-10); NRBC Flagged by Analyzer 0 % (0-5); Neutrophil # 5.17 X10^3/uL (2.7-7.7); Neutrophil % 62.1 % (47-70); Platelet Count 269 K/mm3 (150-450); RBC Distribution Width CV 12.6 % (11.6-14.6); RBC Distribution Width SD 42.1 fl (35.1-43.9); White Blood Count 8.3 K/mm3 (4.4-11.0)
[2020-02-29 16:42] LABS: ALB/GLOB Ratio 0.9 RATIO (0.9-2.4); AST(SGOT) 13 U/L (15-37); Alanine Aminotransfer ALT/SGPT 17 U/L (13-56); Albumin, Serum 3.8 g/dL (3.2-5.0); Alkaline Phosphatase 121 U/L (45-117); Amylase 45 U/L (25-115); Anion Gap 5 (5-15); BUN 6 mg/dL (7-18); BUN/Creat Ratio 8.4 RATIO (10-20); Calcium,Total 9.5 mg/dL (8.5-10.1); Chloride 101 mmol/L (98-107); Creatinine, Serum 0.71 mg/dL (0.55-1.02); EST Glomerular Filtration Rate 89 mL/min (>60); Est Glom Filt Rate - Afr Amer 108 mL/min (>60); Globulin 4.2 g/dL (2.2-4.2); Glucose 90 mg/dL (74-106); Lipase 88 U/L (73-393); Potassium 3.6 mmol/L (3.5-5.1); Sodium Level 137 mmol/L (136-145); Thyroid Stim Hormone (TSH) 1.28 uIU/mL (0.358-3.74)
[2020-03-01 09:09] LABS: Hepatitis C Antibody Non-Reactive (Nonreactive)
== END ==
PROVIDERS: Visit Provider Family Medicine Geriatric Medicine
DX: R53.83 Other fatigue (principal); Z13.89 Encounter for screening for other disorder; E55.9 Vitamin D deficiency, unspecified; R10.9 Unspecified abdominal pain
CPT/HCPCS: 36415; 80053; 82150; 83690; 84443; 85025; 86803

== ENCOUNTER → 2020-02-29 15:05 | Outpatient (CLI) | payer BC, MEDICAID, SELFPAY ==
--- NOTE | 2020-02-29 15:09 | CT_ITS ---
STUDY: CT CHEST WITHOUT CONTRAST- LOW DOSE SCREENING PROTOCOL REASON FOR EXAM: Female, 59 years old. Current smoker. 39 pack per year history. No current symptoms of lung cancer or pulmonary infection. Shared decision-making with referring PCP documented in patient''s record. RADIATION DOSAGE (If Supplied By Facility): CTDIvol = ( 2.01 ) mGy, DLP = ( 74.24 ) mGycm TECHNIQUE: Low dose screening CT examination performed from the base of the neck to the upper abdomen. Sagittal and coronal reformatted images performed. Sagittal and coronal MIP images provided. The measurements provided are average, rounded measurements per ACR guidelines. COMPARISON: None. FINDINGS: Mild emphysematous changes. Mild bilateral apical scarring. Some bibasilar linear scarring. No noncalcified nodule or mass. There is no demonstrated pleural abnormality. Normal heart and pericardium. Normal mediastinum. Normal hilar regions. There is prominence of the pulmonary hilar arteries without peripheral pulmonary vascular congestion, suggesting pulmonary hypertension. Normal aorta arch and descending thoracic aorta. Normal osseous structures. There is no demonstrated abnormality of the visualized upper abdomen. CT/Low Dose CT Lung Screening IMPRESSION: 1. No significant indeterminate incidental findings requiring additional imaging. 2. Incidental findings include mild emphysema with some scarring and suspected pulmonary arterial hypertension.. ASSESSMENT CATEGORY: LungRADS 1 - Negative. Continue annual screening with LDCT in 12 months, per established ACR guidelines. Electronically Signed: Jeremias Mott MD at 14:36 EDT Tel , Service support ,
--- NOTE | 2020-02-29 15:10 | CT_ITS ---
STUDY: CT ABDOMEN AND PELVIS WITH CONTRAST REASON FOR EXAM: Female, 59 years old. RIGHT MID ABD PAIN RADIATES TO RIGHT FLANK RADIATION DOSAGE (If Supplied By Facility): CTDIvol = ( 15.72 ) mGy, DLP = ( 209.88 ) mGycm TECHNIQUE: Transaxial images were obtained from the dome of the diaphragm to the symphysis pubis with oral contrast. Oral and amp; IV Gastrografin and amp; 100mL Isovue-300 was administered. Sagittal and coronal images were reconstructed. Individualized dose optimization techniques were used for this CT. COMPARISON: None. FINDINGS: There is minor curvilinear subsegmental atelectasis or scarring in the lung bases. The visualized portions of the heart are within normal limits. Normal liver. There are patent portal vein diameter is 13 mm. Normal gallbladder and extrahepatic biliary system. The common bile duct diameter is 5.6 mm. Normal spleen. Normal size and contour of the pancreas. 3.5 mm diameter segmental ectasia of the pancreatic duct in the lateral body and tail the pancreas is of uncertain clinical significance. Normal bilateral adrenal glands. Normal right kidney. Normal left kidney. No hydronephrosis. The stomach is filled with fluid, gas, and undigested food stuffs. Normal small intestine. Normal colon. The appendix is visualized and appears normal. There is diffuse atherosclerotic calcification of the abdominal aorta and proximal iliac arteries, without a demonstrated aneurysm. There is 60-80% atherosclerotic ostial narrowing of the right common iliac artery. Normal inferior vena cava. Normal retroperitoneum. Normal urinary bladder. There is atrophy of the uterus. Normal abdominal wall. Early degenerative changes of the mid to lower right sacroiliac joint. CT/Abdomen/Pelvis WITH Contrast IMPRESSION: 1. Aortoiliac atherosclerotic calcific plaquing. There is 60-80% ostial stenosis of the right common iliac artery. 2. No demonstrated abdominal/pelvic mass or fluid collection. Electronically Signed: Delon Chambers MD at 17:37 EDT , Service support ,
== END ==
PROVIDERS: PCP Family Medicine Geriatric Medicine; Referring Provider Family Medicine Geriatric Medicine; Visit Provider Family Medicine Geriatric Medicine
DX: R10.9 Unspecified abdominal pain (principal); T65.222S Toxic effect of tobacco cigarettes, intentional self-harm, sequela
CPT/HCPCS: 36415; 74177; 80053; 82150; 83690; 84443; 85025; 86803; G0297; Q9967

== ENCOUNTER → 2020-03-01 09:12 | Outpatient (CLI) | payer BC, MEDICAID, SELFPAY ==
--- NOTE | 2020-03-01 09:14 | US_ITS ---
STUDY: ABDOMINAL ULTRASOUND - RIGHT UPPER QUADRANT REASON FOR VISIT: Female, 59 years old abd pain TECHNIQUE: Ultrasound evaluation of the right upper quadrant was performed with real-time and static murdock-scale imaging. TECHNICAL QUALITY: Adequate. COMPARISON: None. FINDINGS: Liver: The liver measures 14.5 cm. There is normal echogenicity of the liver. The bile ducts are within normal limits. There is hepatic color flow. The direction of portal flow is hepatopetal. There is no demonstrated mass lesion. Gallbladder: Normal distended gallbladder. The gallbladder wall measures 2 mm. There is a negative sonographic Estrada''s sign. There is no pericholecystic fluid. There are no gallstones. Common Bile Duct (C.B.D.): The common bile duct measures 3 mm. Pancreas: Normal size of the head, body and tail of the pancreas. There is normal echogenicity of the pancreas. There is no demonstrated pancreatic mass or cyst. Right Kidney: Normal size of the right kidney. The right kidney measures 10.7 cm. Normal renal cortex. The right cortex measures 1.2 cm. There is no demonstrated renal mass or cyst. There is no right hydronephrosis. US/Abdomen Limited IMPRESSION: Normal right upper quadrant ultrasound examination. Electronically Signed: Jeremias Mott MD at 10:09 EDT Tel , Service support ,
== END ==
PROVIDERS: PCP Family Medicine Geriatric Medicine; Referring Provider Family Medicine Geriatric Medicine; Visit Provider Family Medicine Geriatric Medicine
DX: R10.9 Unspecified abdominal pain (principal)
CPT/HCPCS: 76705

== ENCOUNTER → 2020-03-02 07:55 | Outpatient (CLI) | payer BC, MEDICAID, SELFPAY ==
--- NOTE | 2020-03-02 08:03 | CT_ITS ---
STUDY: CTA OF THE ABDOMINAL AORTA AND BILATERAL LOWER EXTREMITIES REASON FOR EXAM: Female, 59 years old. Aortic atherosclerosis, right sided abdomen pain. CT abdomen/pelvis 02/29/20 showed right iliac stenosis. RADIATION DOSAGE (If Supplied By Facility): CTDIvol = ( 6.83 ) mGy, DLP = ( 839.81 ) mGycm TECHNIQUE: Axial CT angiography multi-detector data acquisition was obtained from the lower chest to the ankle following intravenous administration of 75mL Isovue 370. Axial images and MIP images were reconstructed from the axial data set. Post-processing of the angiographic images was performed, with multiplanar reformation and 3D reconstruction. Individualized dose optimization techniques were used for this CT. TECHNICAL QUALITY: Good COMPARISON: None. Descriptors of Narrowing: None (0%) Mild (< 50%) Moderate (50-70%) Severe (70-90%) Subtotal/Total Occlusion (90-100%) Non-Evaluable (technically non-diagnostic FINDINGS: Abdominal aorta: Calcified plaques but no suspicious stenosis. No aneurysm. Celiac and superior mesenteric arteries: No demonstrated narrowing. Inferior mesenteric artery: No demonstrated narrowing. Right renal artery(arteries): 70% stenosis at this origin. Left renal artery(arteries): No demonstrated narrowing. Right common iliac artery: 70% stenosis at its origin. Right external iliac artery: No demonstrated narrowing. Right internal iliac artery: High-grade stenosis at its origin. Left common iliac artery: 70% stenosis in the midportion and 50% stenosis proximally but distal to its origin. Left external iliac artery: No demonstrated narrowing. Left internal iliac artery: High-grade stenosis at its origin. RIGHT LOWER EXTREMITY Right common femoral artery: No demonstrated narrowing. Right profundus femoris: No demonstrated narrowing. Right superficial femoral: No demonstrated narrowing. Right popliteal artery: No demonstrated narrowing. Right tibioperoneal trunk: No demonstrated narrowing. Right anterior tibial artery: No demonstrated narrowing. Right posterior tibial artery: No demonstrated narrowing. Right peroneal artery: No demonstrated narrowing. LEFT LOWER EXTREMITY Left common femoral artery: No demonstrated narrowing. Left profundus femoris: No demonstrated narrowing. Left superficial femoral: No demonstrated narrowing. Left popliteal artery: No demonstrated narrowing. Left tibioperoneal trunk: No demonstrated narrowing. Left anterior tibial artery: No demonstrated narrowing. Left posterior tibial artery: No demonstrated narrowing. Left peroneal artery: No demonstrated narrowing. CT/CTA Abd w/Runoff W/WO Contrast IMPRESSION: 1. 70% stenosis of the right renal artery origin. 2. 70% stenosis of the right common iliac artery origin. 3. 70% stenosis in the midportion of the left common artery and 50% stenosis of the left common iliac artery near but distal to its origin. 4. High-grade stenosis at the origins of both internal iliac arteries. 5. Normal runoff of the bilateral lower extremities. Electronically Signed: Mega Tse MD at 10:54 EDT , Service support ,
== END ==
PROVIDERS: PCP Family Medicine Geriatric Medicine; Referring Provider Family Medicine Geriatric Medicine; Visit Provider Family Medicine Geriatric Medicine
DX: I70.0 Atherosclerosis of aorta (principal)
CPT/HCPCS: 75635; Q9967

== ENCOUNTER → 2020-03-07 15:49 | Outpatient (CLI) | payer BC, MEDICAID, SELFPAY ==
--- NOTE | 2020-03-07 15:54 | RAD_ITS ---
STUDY: X-RAY - UNILATERAL RIBS ( RIGHT ) WITH CHEST REASON FOR EXAM: Female, 59 years old. Right posterior and anterior rib pain x 1 month -- no injury TECHNIQUE - RIBS: 3 view(s) of the ribs. TECHNIQUE - CHEST: Single frontal view of the chest. COMPARISON: Right humerus dated November 21, 2014 FINDINGS - RIBS: Normal visualized ribs without a demonstrated fracture. FINDINGS - CHEST: There is no focal consolidation. Normal size heart. Normal mediastinum and faith. Normal visualized pulmonary arteries. Normal visualized aortic arch and descending thoracic aorta. Normal visualized thoracic spine. There is a right humeral head deformity consistent with a healed fracture. There is no demonstrated abnormality of the visualized soft tissue structures of the upper abdomen. RAD/Ribs Uni Min 3V w/PA Chest IMPRESSION: RIBS: Within normal limits x-ray examination of the ribs. CHEST: No acute cardiopulmonary process. Electronically Signed: Dafne Bob MD at 19:43 EDT Tel , Service support ,
== END ==
PROVIDERS: PCP Family Medicine Geriatric Medicine; Referring Provider Internal Medicine Gastroenterology; Visit Provider Internal Medicine Gastroenterology
DX: R07.81 Pleurodynia (principal)
CPT/HCPCS: 71101

== ENCOUNTER → 2020-03-13 11:31 | Outpatient (CLI) | payer BC, SELFPAY | PROVIDERS: PCP Family Medicine Geriatric Medicine; Referring Provider Internal Medicine Gastroenterology; Visit Provider Internal Medicine Gastroenterology | DX: Z11.59 Encounter for screening for other viral diseases (principal) | CPT/HCPCS: 87635; G2023; U0003 ==

== ENCOUNTER → 2020-04-17 10:00 | Outpatient (CLI) | payer BC, MEDICAID, SELFPAY ==
--- NOTE | 2020-04-17 10:06 | NM_ITS ---
CLINICAL: 59-year-old female with reported history of abdominal bloating and nausea. COMPARISON: CT of the abdomen-pelvis report 02/29/2020, abdominal ultrasound report 03/01/2020 FINDINGS: The patient was administered 1.1 mCi of 99m Tc sulfur colloid mixed with oatmeal and consumed per os. Image acquisitions in the anterior-posterior projections for a total of 60 minutes. There is prompt visualization of the stomach. There is no gastroesophageal reflux identified. First order kinetics are maintained throughout the duration of the acquisitions. The T1/2 linear fit was calculated to be 60.65 minutes, (Normal: 12-56 minutes). NM/Gastric Emptying Study IMPRESSION: 1. ABNORMAL 99m Tc sulfur colloid semi-solid phase (oatmeal) gastric emptying imaging examination. A. There is mild delayed semi-solid phase gastric emptying compared to normal controls with maintained first order kinetics throughout all components of the examination. (Lisa magana al, J Nucl Med Tech 38: 186, 2010). Electronically Signed: Jeremias Mcgregor DO at 21:42 EDT Tel , Service support ,
== END ==
PROVIDERS: PCP Family Medicine Geriatric Medicine; Referring Provider Family Medicine Geriatric Medicine; Visit Provider Family Medicine Geriatric Medicine
DX: R10.9 Unspecified abdominal pain (principal)
CPT/HCPCS: 78264; A9541

== ENCOUNTER → 2020-05-31 11:23 | Outpatient (CLI) | payer BC, MEDICAID, SELFPAY ==
[2020-05-31 12:19] LABS: Absolute Lymphocyte Count 2.47 X10^3/uL (0.83-4.51); Absolute Neutrophil Count 4.1 X10^3/uL (2.0-7.7); Basophil# 0.05 X10^3/uL; Basophil% 0.7 % (0-1); Eosinophil# 0.13 X10^3/uL; Eosinophils% 1.8 % (0-5); Hemoglobin 14.3 g/dL (12.0-15.0); Lymphocyte # 2.47 X10^3/ul (4.0); Lymphocyte % 33.6 % (19-41); Mean Corp Hgb Conc 32.5 g/dL (32-36); Mean Corpuscular Hgb 30.2 pg (27.0-32.0); Mean Corpuscular Volume 92.8 fL (81-99); Monocyte# 0.61 X10^3/uL; Monocyte% 8.3 % (0-10); NRBC Flagged by Analyzer 0 % (0-5); Neutrophil # 4.08 X10^3/uL (2.7-7.7); Neutrophil % 55.3 % (47-70); Platelet Count 257 K/mm3 (150-450); RBC Distribution Width CV 14.2 % (11.6-14.6); Red Blood Count 4.74 M/mm3 (4.2-5.4); White Blood Count 7.4 K/mm3 (4.4-11.0)
[2020-05-31 12:52] LABS: AST(SGOT) 16 U/L (15-37); Alanine Aminotransfer ALT/SGPT 17 U/L (13-56); Albumin, Serum 3.9 g/dL (3.2-5.0); Alkaline Phosphatase 134 U/L (45-117); Anion Gap 4 (5-15); BUN 3 mg/dL (7-18); BUN/Creat Ratio 4.4 RATIO (10-20); Calcium,Total 9.1 mg/dL (8.5-10.1); Chloride 100 mmol/L (98-107); Creatinine, Serum 0.68 mg/dL (0.55-1.02); EST Glomerular Filtration Rate 94 mL/min (>60); Est Glom Filt Rate - Afr Amer 114 mL/min (>60); Globulin 4.1 g/dL (2.2-4.2); Glucose 81 mg/dL (74-106); Potassium 3.5 mmol/L (3.5-5.1); Sodium Level 135 mmol/L (136-145)
== END ==
PROVIDERS: PCP Family Medicine Geriatric Medicine; Visit Provider Family Medicine Geriatric Medicine
DX: R53.83 Other fatigue (principal)
CPT/HCPCS: 36415; 80053; 84443; 85025